=== PATIENT | female | born 1975 | race American Indian/Alaskan Native ===

== ENCOUNTER → 2022-01-07 | Outpatient (CLI) | payer BC, OTHER ==
[~2022-01-07] MED LIST: ARMOUR THYROID PO; LISINOPRIL PO; METF500 PO; NEXIUM 40MG PO; OMEP40CA12 PO; OXYACE5T PO; PHENTERMINE PO; PROM25 PO; THYR60 PO
== END | disposition home or self-care (01) ==
LOC: LAB SHORT 11:06
DX: L30.8 Other specified dermatitis (principal)
CPT/HCPCS: 88305; 88312

== ENCOUNTER → 2023-10-15 | Outpatient (CLI) | payer OTHER ==
[2023-10-15 12:11] LABS: BASOPHILS ABSOLUTE AUTO 0.06 K/mm3 (0.00-0.23); BASOPHILS PERCENT AUTO 1 % (0-2); EOSINOPHILS ABSOLUTE AUTO 0.34 K/mm3 (0.00-0.68); EOSINOPHILS PERCENT AUTO 4 % (0-6); Hematocrit 41.3 % (33.0-51.0); Hemoglobin 13.6 g/dL (11.5-16.0); IMMATURE GRAN ABSOLUTE AUTO 0.04 K/mm3 (0.00-0.10); IMMATURE GRAN PERCENT AUTO 1 % (0-1); LYMPHOCYTES ABSOLUTE AUTO 1.82 K/mm3 (0.84-5.20); LYMPHOCYTES PERCENT AUTO 24 % (21-46); MONOCYTES ABSOLUTE AUTO 0.43 K/mm3 (0.16-1.47); MONOCYTES PERCENT AUTO 6 % (4-13); Mean Corpuscular HGB Conc 32.9 g/dL (31.5-36.5); Mean Corpuscular Volume 85 fL (80-100); Mean Platelet Volume 12.1 fL (9.1-12.4); NEUTROPHILS ABSOLUTE AUTO 4.99 K/mm3 (1.96-9.15); NEUTROPHILS PERCENT AUTO 65 % (41-73); Platelet Count 287 K/mm3 (150-400); RDW Coefficient Variation 13.5 % (11.7-14.2); RDW Standard Deviation 42.2 fL (35.1-46.3); Red Blood Cell Count 4.85 M/mm3 (3.80-5.20); White Blood Cell Count 7.68 K/mm3 (4.00-11.30)
[2023-10-15 12:12] LABS: Albumin, Blood 3.5 g/dL (3.4-5.0); Albumin/Globulin Ratio 0.8 (0.8-1.8); Bilirubin, Total 0.3 mg/dL (0.1-1.0); Bun/Creatinine Ratio 24.9 (12.0-20.0); Calcium, Blood 9.1 mg/dL (8.5-10.1); Creatinine, Blood 0.72 mg/dL (0.40-1.00); Globulin, Blood 4.5 g/dL (2.2-4.0); Potassium, Blood 4.3 mmol/L (3.5-5.5)
== END | disposition home or self-care (01) ==
LOC: LAB SHORT 10:27 → LAB 10:27
PROVIDERS: Student in an Organized Health Care Education/Training Program
DX: A08.4 Viral intestinal infection, unspecified (principal)
CPT/HCPCS: 80053; 85025

== ENCOUNTER 2024-04-14 09:19 | Day surgery (SDC) | payer OTHER ==
[~2024-04-14] VITALS: Ht 162.6 cm; Wt 131.6 kg
[~2024-04-14 09:19] MED LIST changes: +ALDACTONE100 MG PO; +EUTHYROX125 MCG PO; +GABA300 PO; +Lactated Ringer's 1,000 ML IV ONE; +OLME20 PO; +OZEMPIC0.25 MG/02; +TRAZ50 PO
[2024-04-14] MEDS ORDERED: Lactated Ringer's 1,000 ML IV ONE (09:42)
[2024-04-14] MEDS ORDERED: CeFAZolin Sodium 2,000 MG VIAL ONE (09:53)
[2024-04-14] MEDS ORDERED: NS 0 ML IV ONE (09:54)
[2024-04-14] MEDS ORDERED: CeFAZolin Sodium 3,000 MG in NS 100 ML IV SCH (10:00)
[2024-04-14] MEDS ORDERED: FentaNYL Citrate 50 MCG/ML 2 ML Injection ONE (10:01)
[2024-04-14] MEDS ORDERED: propofoL 20 ML IV ONE (10:01)
--- NOTE | 2024-04-14 10:42 | NUR ---
04/14/[address] ADMINISTERED PRECEDEX 70MCG IV. OXIMETER ON FINGER TO MONITOR HR AND SPO2. SPO2 98% RA AND HR 75
[2024-04-14] MEDS ORDERED: Midazolam HCl 1MG / ML 2ML Vial ONE (10:47)
[2024-04-14 11:38] VITALS: BP 124/67
--- NOTE | 2024-04-14 11:41 | NUR ---
04/14/[address] IN AT BEDSIDE DISCUSSING SURGERY WITH PT.
[2024-04-14] MEDS ORDERED: HYDROcodone 5-APAP 325 TAB ONE (11:54)
== END 2024-04-14 12:18 | disposition home or self-care (01) ==
LOC: ORSCSDS 09:19
PROVIDERS: Orthopaedic Surgery
PROC: 01N50ZZ Release Median Nerve, Open Approach (ICD-10-PCS; principal; 2024-04-14 10:45)
DX: G56.01 Carpal tunnel syndrome, right upper limb (principal); I10 Essential (primary) hypertension; E78.5 Hyperlipidemia, unspecified; E03.9 Hypothyroidism, unspecified; K21.9 Gastro-esophageal reflux disease without esophagitis; G47.33 Obstructive sleep apnea (adult) (pediatric); H81.12 Benign paroxysmal vertigo, left ear; E11.9 Type 2 diabetes mellitus without complications; E66.9 Obesity, unspecified; Z68.42 Body mass index [BMI] 45.0-49.9, adult; Z79.82 Long term (current) use of aspirin; Z79.899 Other long term (current) drug therapy; Z79.85 Long-term (current) use of injectable non-insulin antidiabetic drugs
CPT/HCPCS: 82947; A9270; J0690; J2250; J2704; J3010; J7120

== ENCOUNTER 2024-10-13 07:36 | Day surgery (SDC) | payer OTHER ==
[~2024-10-13] VITALS: Ht 162.6 cm; Wt 133.0 kg
[~2024-10-13 07:36] MED LIST changes: +Dexmedetomidine HCL 200 MCG / 2 ML ONE; -Lactated Ringer's 1,000 ML IV ONE
[2024-10-13] MEDS ORDERED: CeFAZolin Sodium 3,000 MG in NS 100 ML IV SCH (08:10)
[2024-10-13] MEDS ORDERED: FARXIGA10 MG PO (08:16)
[2024-10-13] MEDS ORDERED: Lactated Ringer's 1,000 ML IV ONE ×2 (08:26→08:41)
--- NOTE | 2024-10-13 08:29 | NUR ---
10/13/24 0829 Velma Mendes 19 GAUGE IV WITH PORT INSERTED TO DORSAL LEFT HAND, SURGIAL SITE, FOR DANIEL BLOCK.
[2024-10-13] MEDS ORDERED: propofoL 50 ML IV ONE (08:32)
[2024-10-13] MEDS ORDERED: Dexamethasone Sod Phos 10 MG/ML 1ML VIAL ONE (08:40)
[2024-10-13] MEDS ORDERED: Ondansetron HCl 2 MG / ML 2ML Vial ONE (08:40)
[2024-10-13] MEDS ORDERED: Ketorolac Tromethamine 30mg Vial ONE (08:40)
[2024-10-13] MEDS ORDERED: propofoL 20 ML IV ONE (08:45)
[2024-10-13] MEDS ORDERED: FentaNYL Citrate 50 MCG/ML 2 ML Injection ONE (09:04)
[2024-10-13 10:54] VITALS: BP 109/53
== END 2024-10-13 10:40 | disposition home or self-care (01) ==
LOC: ORSCSDS 07:36
PROVIDERS: Orthopaedic Surgery
PROC: 01N50ZZ Release Median Nerve, Open Approach (ICD-10-PCS; principal; 2024-10-13 09:00)
DX: G56.02 Carpal tunnel syndrome, left upper limb (principal); I10 Essential (primary) hypertension; G47.33 Obstructive sleep apnea (adult) (pediatric); K21.9 Gastro-esophageal reflux disease without esophagitis; J45.909 Unspecified asthma, uncomplicated; E11.9 Type 2 diabetes mellitus without complications; E66.9 Obesity, unspecified; Z68.43 Body mass index [BMI] 50.0-59.9, adult; Z79.899 Other long term (current) drug therapy
CPT/HCPCS: 82947; J0690; J1100; J1885; J2405; J2704; J3010; J7120